=== PATIENT | female | born 1935 | race Two or more races ===

== ENCOUNTER 2018-04-10 20:56 | Emergency (ER) | payer OTHER ==
[~2018-04-10] VITALS: Wt 66.9 kg
[~2018-04-10 20:56] MED LIST: HYDR-3498 PO
[2018-04-10] MEDS ORDERED: ALBUTEROL 0.083% (NEB) 2.5 MG/3 ML AMP INH STA (22:24)
[2018-04-10] MEDS ORDERED: METHYLPREDNISOLONE 125 MG INJ IV STA (22:24)
--- NOTE | 2018-04-10 23:02 | ERD ---
ER Documentation Chief Complaint Chief Complaint chest pain x 1 day, cough x 1 week HPI This is a 83-year-old female who has had a cough for 7 days with some clear yellow white productive sputum but no fever. She says today she is having some bilateral parasternal chest pain only when she coughs. This pain is sharp. No shortness of breath or palpitations dizziness or near syncope. Denies any chest pain on exertion no orthopnea ROS All systems reviewed and are negative except as per history of present illness. Medications Home Meds Reported Medications [place]-3 Fatty Acids/Fish Oil (Fish Oil 1,000 mg Capsule) 1 Each Capsule, 1 EACH PO, CAP 04/10/18 Benazepril Hcl* (Benazepril Hcl*) 20 Mg Tablet, 20 MG PO DAILY 04/10/18 Hydrochlorothiazide* (Hydrochlorothiazide*) 25 Mg Tab, 25 MG PO DAILY for 30 Days, #30 04/10/18 Alendronate Sodium* (Fosamax*) 70 Mg Tablet, 70 MG PO QSUN for 28 Days, #4 04/10/18 Atorvastatin (Atorvastatin) 10 Mg Tablet, 10 MG PO QHS for 30 Days, #30 04/10/18 Calcium Carbonate/Vitamin D3 (OYSTER SHELL 500 MG + VIT D TB) 1 Each Tablet, 500 MG PO BID for 30 Days, #60 04/10/18 Discontinued Scripts Hydrocodone Bit-Acetaminophen* ([place]*) 5-325 Mg Tab, 1 TAB PO Q6 PRN for PAIN, #20 TAB Prov:DMITRY BUSTILLOS PA-C 03/12/15 Allergies Allergies: Coded Allergies: Penicillins (Unverified Allergy, Mild, RASH, 04/10/18) PMhx/Soc Medical and Surgical Hx: pt denies Surgical Hx Hx Cardiac Disorders: Yes (htn) Hx Miscellaneous Medical Probl: Yes (osteoarthritis) Hx Alcohol Use: No Hx Substance Use: No Hx Tobacco Use: No Smoking Status: Never smoker FmHx Family History: No coronary disease Physical Exam Vitals Vital Signs Date Temp Pulse Resp B/P (MAP) Pulse Ox O2 O2 Flow FiO2 Time Delivery Rate 04/10/18 72 20 136/79 99 Room Air 22:52 (98) 04/10/18 75 18 21 22:41 04/10/18 100.2 87 18 143/75 97 21:05 (97) Physical Exam Const: Well-developed, well-nourished Head: Atraumatic, normocephalic Eyes: Normal Conjunctiva, PERRLA, EOMI, normal sclera, no nystagmus ENT: Normal External Ears, Nose and Mouth, moist mucus membranes. Neck: Full range of motion. No meningismus, no lymphadenopathy. Resp: No increased work of breathing bilateral rhonchi and some slight wheezing] Cardio: Regular rate and rhythm, no murmurs, S1 S2 present Abd: Soft, non tender x 4, non distended. Normal bowel sounds, no guarding or rebound, no pulsitile abdominal masses or bruits Skin: No petechiae or rashes, no ecchymosis , no maculopapular rash Back: No midline or flank tenderness Ext: No cyanosis, or edema, FROM x 4, normal inspection, neurovascularly intact x 4 Neur: Awake and alert, STR 5/5 x 4, sensation intact x 4, no focal findings, cerebellum intact Psych: Normal Mood and Affect Result Diagram: 04/10/181 04/10/182300 Results 24 hrs Laboratory Tests Test 04/10/18 23:01 White Blood Count 8.0 10^3/ul Red Blood Count 4.35 10^6/ul Hemoglobin 12.8 g/dl Hematocrit 39.6 % Mean Corpuscular Volume 91.0 fl Mean Corpuscular Hemoglobin 29.4 pg Mean Corpuscular Hemoglobin Concent 32.3 g/dl Red Cell Distribution Width 13.7 % Platelet Count 213 10^3/UL Mean Platelet Volume 10.1 fl Immature Granulocytes % 0.100 % Neutrophils % 62.1 % Lymphocytes % 25.5 % Monocytes % 10.1 % Eosinophils % 1.4 % Basophils % 0.8 % Nucleated Red Blood Cells % 0.0 /100WBC Immature Granulocytes # 0.010 10^3/ul Neutrophils # 5.0 10^3/ul Lymphocytes # 2.0 10^3/ul Monocytes # 0.8 10^3/ul Eosinophils # 0.1 10^3/ul Basophils # 0.1 10^3/ul Nucleated Red Blood Cells # 0.0 10^3/ul Sodium Level 143 mmol/L Potassium Level 3.9 mmol/L Chloride Level 102 mmol/L Carbon Dioxide Level 31 mmol/L Anion Gap 10 Blood Urea Nitrogen 20 mg/dl Creatinine 0.67 mg/dl Est Glomerular Filtrat Rate mL/min mL/min Glucose Level 117 mg/dl Calcium Level 9.8 mg/dl Troponin I 0.026 ng/ml B-Type Natriuretic Peptide 106 PG/ML Current Medications Medications Dose Sig/Lorena Start Time Status Last (Trade) Ordered Route PRN Stop Time Admin Dose Reason Admin Albuterol 7.5 mg ONCE STAT 04/10/18 DC 04/10/18 (Proventil INH 22:24 04/10/18 22:41 0.083% (Neb)) 22:26 125 mg ONCE STAT 04/10/18 DC 04/10/18 Methylprednis IV 22:24 04/10/18 22:50 olone Sodium 22:26 Succinate (Solu-Medrol) Procedures/MDM PROCEDURE: XR chest. CLINICAL INDICATION: Shortness of breath TECHNIQUE: A single portable view of the chest was obtained. COMPARISON: 03/12/2015 FINDINGS: Heart is borderline enlarged. Aortic arch is mildly atherosclerotic. There is no pneumothorax or pleural effusion. There is no focal pulmonic consolidation. IMPRESSION: 1. No acute pulmonary abnormality. 2. Borderline cardiomegaly and aortic atherosclerosis. RPTAT:HAJM Physician Netta Date Time Electronically viewed and signed by Physician Netta on 04/11/2018 00:04 RM/ CC: TRAVIS MCLEOD DO [id number] EKG: Rate/Rhythm: Normal sinus rhythm with a right bundle branch block/bifascicular block QRS, ST, QT: NORMAL TN, QRS, QT] Impression: Abnormal EKG To the chest pain the patient is having is musculoskeletal because the pain is only there when she coughs Patient received breathing treatments and steroids. After some observation hours the patient says she is breathing much better her room air saturations are 96%. I feel the patient has a bronchitis diagnosis/URI. Cardiac workup is negative. Patient feels much better at this time, and vital signs are normal, symptoms have improved. I did give strict instructions to return to the ED if symptoms continue or worsen, patient will otherwise follow-up with primary care physician. Patient understood instructions and agreed to plan. Disclaimer: Inadvertent spelling and grammatical errors are likely due to EHR/dictation software use and do not reflect on the overall quality of patient care. Also, please note that the electronic time recorded on this note does not necessarily reflect the actual time of the patient encounter. Departure Diagnosis: Primary Impression: Bronchitis Additional Impression: Chest wall pain Condition: Stable TRAVIS MCLEOD DO Apr 10, 2018 23:02
[2018-04-10] MEDS ORDERED: OMEG-135 PO (23:52)
[2018-04-10] MEDS ORDERED: HYDR25TA6 PO (23:52)
[2018-04-10] MEDS ORDERED: BENA20TA4 PO (23:52)
[2018-04-10] MEDS ORDERED: ALEN70TA44 PO (23:52)
[2018-04-10] MEDS ORDERED: ATOR10TA65 PO (23:52)
[2018-04-10] MEDS ORDERED: CALC1TAB93 PO (23:52)
[2018-04-11] MEDS ORDERED: ALBU8.5H8 INH (01:18)
[2018-04-11] MEDS ORDERED: AZIT250T PO (01:18)
[2018-04-11] MEDS ORDERED: PRED20TA PO (01:18)
[2018-04-11 01:57] VITALS: BP 142/59; PULSE 72; RESP 20
== END 2018-04-11 02:03 | disposition home or self-care (01) ==
LOC: E/R 20:56
DX: J40 Bronchitis, not specified as acute or chronic (principal); I10 Essential (primary) hypertension
CPT/HCPCS: 36415; 71045; 80048; 83880; 84484; 85025; 93005; 94644; 96374; J2930; Z7502; Z7610